=== PATIENT | male | born 1985 | race Caucasian/White ===

== ENCOUNTER 2025-03-27 05:52 | Emergency (ER) | payer BC, SELFPAY ==
[2025-03-27 05:57] VITALS: BP 115/78
[2025-03-27 06:19] VITALS: BP 117/81
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
[2025-03-27] MEDS: TORADOL 30 MG IM (06:44)
--- NOTE | 2025-03-27 08:40 | EDRN ---
Reviewed discharge instructions with patient. Verbalized understanding. Ambulated with steady gait to the lobby.
[2025-03-27 08:43] VITALS: BP 110/60
== END 2025-03-27 08:44 | disposition home or self-care (01) ==
LOC: EMR 05:52
PROVIDERS: EMERGENCY PHYSICIAN Student in an Organized Health Care Education/Training Program
DX: S43.101A Unspecified dislocation of right acromioclavicular joint, initial encounter (principal); V18.4XXA Pedal cycle driver injured in noncollision transport accident in traffic accident, initial encounter; Y93.55 Activity, bike riding
CPT/HCPCS: 96372; 99284; 73030